=== PATIENT | male | born 1995 | race Caucasian/White ===

== ENCOUNTER → 2020-08-12 | Outpatient (CLI) | payer OTHER ==
--- NOTE | 2020-08-12 16:45 | RAD ---
Bilateral hips, 2 views each INDICATION: Bilateral hip pain with history of previous hip fractures. COMPARISON: No relevant comparisons currently available. FINDINGS: AP and frog-leg lateral views of both hips were obtained. No acute fracture is shown. No dislocation or aggressive osseous lesions are identified. No significant degenerative change. Soft tissues are unremarkable. IMPRESSION: Negative bilateral hip x-rays. Electronically signed by: Trevon Kent MD (08/12/2020 4:42 PM) [id number]
== END ==
LOC: RAD 12:04
PROVIDERS: ATTEND Anesthesiology Pain Medicine
DX: M25.551 Pain in right hip (principal); M25.552 Pain in left hip
CPT/HCPCS: 73521